=== PATIENT | female | born 1940 | race Caucasian/White ===

== ENCOUNTER → 2019-07-07 12:09 | Outpatient (CLI) | payer MEDICARE, BC ==
[2019-07-07 12:27] LABS: BASOPHILS 0.2 % (0-2); EOSINOPHILS 3.2 % (0-7); HEMATOCRIT 44.5 % (36.0-48.0); HEMOGLOBIN 14.4 g/dL (12-16); IMMATURE GRANULOCYTES 0.2 % (0-5); LYMPHOCYTES 34.7 % (15-50); MCH 29.8 pg (26.0-34.0); MCHC 32.4 g/dL (31.0-37.0); MCV 92.1 fL (80.0-100.0); MEAN PLATELET VOLUME 10.5 fL (7.4-10.4); MONOCYTES 7.3 % (2-11); NEUTROPHILS 54.4 % (40-80); PLATELET COUNT 246 10x3/uL (130-400); RBC 4.83 10x6/uL (4.00-5.40); RDW 13.5 % (11.5-14.5)
[2019-07-07 13:03] LABS: ALBUMIN 3.8 g/dL (3.4-5.0); ANION GAP 11.5 mmol/L (8-16); BILIRUBIN - TOTAL 0.52 mg/dL (0.2-1.3); CALCIUM 8.8 mg/dL (8.5-10.1); CARBON DIOXIDE 25.4 mmol/L (21.0-32.0); CREATININE - SERUM 1.5 mg/dL (0.6-1.3); POTASSIUM - SERUM 3.9 mmol/L (3.5-5.1)
== END | disposition home or self-care (01) ==
LOC: D.LABREF 12:09
PROVIDERS: ATTEND Internal Medicine Hematology & Oncology
DX: I82.409 Acute embolism and thrombosis of unspecified deep veins of unspecified lower extremity (principal); D51.3 Other dietary vitamin B12 deficiency anemia; D68.51 Activated protein C resistance

== ENCOUNTER → 2019-07-08 13:02 | Outpatient (CLI) | payer MEDICARE, BC | END | disposition home or self-care (01) | LOC: D.LABREF 13:02 | PROVIDERS: ATTEND Internal Medicine Hematology & Oncology | DX: I82.409 Acute embolism and thrombosis of unspecified deep veins of unspecified lower extremity (principal) ==

== ENCOUNTER 2020-09-03 15:39 | Inpatient (IN) | payer MEDICARE, BC ==
[~2020-09-03] VITALS: Ht 165.1 cm; Wt 87.1 kg
--- NOTE | 2020-09-03 16:23 | NUR ---
ARRIVES WITH FAMILY PER CAR, BROUGHT TO UNIT PER WC, ALERT AND O, HINGE BRACE IN PLACE TO R LEG, WILL TRANSCRIBE ORDERS
[2020-09-03 17:20] VITALS: BP 118/58
--- NOTE | 2020-09-03 19:33 | NUR ---
AWAKE AND ALERT. RESTING IN BED WITH RESPIRATIONS UNLABORED. RIGHT LEG HINGED BRACE IN PLACE. NO ACUTE DISTRESS NOTED. CALL LIGHT IN REACH.
[2020-09-03 20:00] VITALS: BP 125/60
--- NOTE | 2020-09-04 01:22 | NUR ---
RESTING WITH EYES CLOSED AND RESPIRATIONS UNLABORED. NO DISTRESS NOTED.
--- NOTE | 2020-09-04 05:25 | NUR ---
QUIET HOURS. NO ACUTE CHANGES IN CONDITION THIS SHIFT. RESTING IN BED WITH NO DISTRESS NOTED.
[2020-09-04 07:00] VITALS: BP 168/69
--- NOTE | 2020-09-04 08:00 | NUR ---
SHIFT ASSMT COMPLETED.CL IN REACH.
[2020-09-04 13:13] VITALS: Ht 165.1 cm; Wt 87.1 kg
[2020-09-04 19:00] VITALS: BP 118/67
--- NOTE | 2020-09-04 19:14 | NUR ---
AWAKE AND ALERT. RESTING IN BED WITH RESPIRATIONS UNLABORED. NO ACUTE DISTRESS NOTED. HINGED BRACE OFF WHILE IN BED.
--- NOTE | 2020-09-05 05:09 | NUR ---
QUIET HOURS. NO ACUTE CHANGES IN CONDITION THIS SHIFT. RESTING IN BED WITH NO DISTRESS NOTED.
[2020-09-05 07:00] VITALS: BP 115/39
--- NOTE | 2020-09-05 08:00 | NUR ---
SHIFT ASSMT COMPLETED.CL IN REACH.
--- NOTE | 2020-09-05 12:00 | NUR ---
SITTING UP IN CHAIR EATING LUNCH.
--- NOTE | 2020-09-05 19:28 | NUR ---
RESTING IN BED, NO DISTRESS NOTED, ALERT AND O, CONT TO MONITOR SAFETY
[2020-09-05 19:51] VITALS: BP 108/60
--- NOTE | 2020-09-06 01:21 | NUR ---
UP TO BATHROOM WITH WALKER, REFUSING TO WEAR BRACE TO KNEE, EXPLAINED NEED TO PT FOR STABILITY
[2020-09-06 07:00] VITALS: BP 129/48
[2020-09-06 07:07] LABS: EOSINOPHILS 4.1 % (0-7); HEMATOCRIT 38.5 % (36.0-48.0); HEMOGLOBIN 12.6 g/dL (12-16); LYMPHOCYTES 31.1 % (15-50); MCHC 32.6 g/dL (31.0-37.0); MCV 88.9 fL (80.0-100.0); MEAN PLATELET VOLUME 8.1 fL (7.4-10.4); MONOCYTES 8.7 % (2-11); NEUTROPHILS 55.1 % (40-80); PLATELET COUNT 228 10x3/uL (130-400); RBC 4.34 10x6/uL (4.00-5.40); RDW 14.1 % (11.5-14.5); WBC 5.2 10x3/uL (4.8-10.8)
[2020-09-06 07:32] LABS: ANION GAP 12.5 mmol/L (8-16); CALCIUM 9.6 mg/dL (8.5-10.1); CARBON DIOXIDE 22.8 mmol/L (21.0-32.0); CREATININE - SERUM 1.1 mg/dL (0.6-1.3); POTASSIUM - SERUM 4.3 mmol/L (3.5-5.1)
--- NOTE | 2020-09-06 18:47 | NUR ---
BEDSIDE REPORT COMPLETE. RECEIVED PT SITTING UP IN BED AWAKE. ALERT AND ORIENTED X4. DENIES ANY NEEDS OR PAIN. NO DISTRESS NOTED. CALL LIGHT AND WATER WITHIN REACH. PADMINI ALARM ON. CPOC
[2020-09-06 21:33] VITALS: BP 138/59
--- NOTE | 2020-09-07 00:38 | NUR ---
PT LYING IN BED EYES CLOSED RESTING. RR EVEN AND UNLABORED. CALL LIGHT WITHIN REACH. PADMINI ALARM ON
--- NOTE | 2020-09-07 06:08 | NUR ---
PT LYING IN BED ON LEFT SIDE EYES CLOSED RESTING. EASILY AROUSED WITH STIMULI. DENIES ANY NEEDS OR PAIN. NO ACUTE CHANGES IN CONDITION THIS SHIFT. CALL LIGHT AND WATER WITHIN REACH. PADMINI ALARM ON.
[2020-09-07 07:41] VITALS: BP 133/72
[2020-09-07 21:31] VITALS: BP 120/56
--- NOTE | 2020-09-08 02:18 | NUR ---
PT LYING IN BED ON LEFT SIDE EYES CLOSED RESTING. RR EVEN AND UNLABORED. PADMINI ALARM ON
--- NOTE | 2020-09-08 05:20 | NUR ---
PT LYING IN BED ON LEFT SIDE EYES CLOSED RESTING. NO DISTRESS NOTED. EASILY AROUSED WITH STIMULI. DENIES ANY NEEDS OR PAIN. CALL LIGHT WITHIN REACH. PADMINI ALARM ON
[2020-09-08 07:24] VITALS: BP 128/48
--- NOTE | 2020-09-08 08:00 | NUR ---
PATIENT SITTING UP IN BED EATTING BREAKFAST. CALL LIGHT WITHIN REACH. VOICES NO NEEDS AT THIS TIME. WILL CONTINUE WITH PLAN OF CARE
--- NOTE | 2020-09-08 10:44 | NUR ---
PATIENT IN REHAB ROOM. WORKING WITH PHYSICAL THERAPIST. DENIES ANY PAIN/DISC AT THIS TIME.
--- NOTE | 2020-09-08 11:41 | NUR ---
PATIENT ADMITTS TO [facility] FROM AN OUTSIDE FACILITY. AT THIS TIME DISCHARGE PLANS ARE FOR PATIENT TO RETURN TO HER HOME. WILL CONTINUE TO FOLLOW WITH PATIENT.
--- NOTE | 2020-09-08 15:53 | NUR ---
CARE TEAM MEETING: PATIENT IS DOING WELL IN THERAPY . HER TENATIVE DC DATE IS 09/10/20. WILL CONTINUE TO FOLLOW WITH PATIENT AND WILL ASSIST WITH DISCHARGE.
--- NOTE | 2020-09-08 17:21 | NUR ---
PATIENT SITTING UP ON THE SIDE OF THE BED TO EAT SUPPER. CALL LIGHT WITHIN REACH. VOICES NO NEED AT THIS TIME.
--- NOTE | 2020-09-08 18:47 | NUR ---
BEDSIDE REPORT COMPLETE. RECEIVED PT SITTING UP IN BED VISITING WITH FAMILY. ALERT AND ORIENTED X4. DENIES ANY NEEDS OR PAIN. NO DISTRESS NOTED. CALL LIGHT AND WATER WITHIN REACH. PADMINI ALARM ON. CPOC
[2020-09-08 20:17] VITALS: BP 143/57
--- NOTE | 2020-09-09 03:01 | NUR ---
PT LYING IN BED ON RIGHT SIDE EYES CLOSED RESTING. RR EVEN AND UNLABORED
[2020-09-09 08:07] VITALS: BP 104/53
--- NOTE | 2020-09-09 09:23 | NUR ---
SHE IS WORKING WITH THERAPY, SHE HAS A BRACE ON THE RIGHT LEG. SHE TOOK HER MEDICATIONS WITHOUT ANY PROBLEMS.
--- NOTE | 2020-09-09 18:55 | NUR ---
BEDSIDE REPORT COMPLETE. RECEIVED PT SITTING UP IN BED VISITING WITH FAMILY. ALERT AND ORIENTED X4. DENIES ANY NEEDS OR PAIN. NO DISTRESS NOTED. NO IV OR OXYGEN NOTED. CALL LIGHT AND WATER WITHIN REACH. PT IS ABLE TO AMBULATE IN ROOM INDEPENDENTLY PER PHYSICAL THERAPY. CPOC
--- NOTE | 2020-09-09 19:44 | RHP ---
PATIENT: BRIA CHAPA MEDICAL RECORD: [id number] ACCOUNT: [id number] [facility] AD[facility] DATE: 09/03/20 REHABILITATION HISTORY AND PHYSICAL EXAMINATION POST ADMISSION PHYSICIAN EXAMINATION POST ADMISSION PHYSICAL EXAMINATION AND HISTORY AND PHYSICAL ADMISSION DIAGNOSIS: Partial thickness tear of her semimembranosus tendon. HISTORY OF PRESENT ILLNESS: The patient is admitted to the rehab unit after an orthopedic diagnosis of a partial thickness tear of her semimembranosus tendon of her right knee. She has got a tear in her medial meniscus, joint effusion, and presence of a chronic DVT. The patient is an 79-year-old female, the patient got a history of CVA in the past. She presented to the ED with complaints of right knee pain. Her primary caregiver is her who also fell earlier that week. The patient was attempting to help him get up when her knee gave out. She had pain and inability to bear weight. She did try her spouse's walker without success. She was admitted for pain control, orthopedic evaluation, and possible post-acute placement. She is alert and oriented, very pleasant. She is slightly hard of hearing. Her pain is mainly to active motion and not palpation. The patient is on Eliquis and was held by ortho doctor, Dr. Mcgrath ordered MRI, which showed a partial thickness tear in her semimembranosus tendon. 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 She has got a horizontal tear of her medial meniscus. He decided really there was no surgical intervention appropriate at this time, put her on a knee immobilizer. She was independent at home prior to this fall and was a primary caregiver to her . Her family states that they cannot help. She is now requiring mid to mod assist with her functional transfers and ADLs. She will need intensive therapy to return back to her prior level of function or close as possible. She is also going to need additional pain control, lab monitoring. She will also be monitored for signs of DVT, immobility, and potential for a pulmonary embolus. Comorbidities include degenerative disk disease, debility, decreased mobility, decreased physical function, difficulty walking, DVT, falls, gastroesophageal reflux disease, hyperlipidemia, osteoarthritis, obesity problems with safety and pain. 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 PAST SURGICAL HISTORY: Includes hysterectomy, knee replacement, and parathyroidectomy. ALLERGIES: No known drug allergies at this time. CURRENT MEDICATIONS: Include Fornix daily. She is on vitamin D 2000 units daily, metoprolol 25 mg daily, folic acid 1 mg daily, B12 1000 mcg daily, Protonix 40 mg daily, Crestor 20 mg at bedtime, Ditropan 5 mg t.i.d., Nystop powder topically apply b.i.d., losartan 25 mg b.i.d., hydrocortisone cream to apply b.i.d., Colace 100 mg b.i.d., Keflex 250 mg at bedtime for 7 dosages. She is on Eliquis 5 mg b.i.d. She is on Pyridium 200 mg t.i.d. p.r.n., Tylenol p.r.n., and MiraLax 17 grams in 8 ounces of water habits. HABITS: No alcohol or tobacco use. HISTORY AND PHYSICAL [id number] BRIA CHAPA FAMILY HISTORY: Noncontributory. SOCIAL HISTORY: The patient hopes to return back to home and get back to her prior level of functioning. REVIEW OF SYSTEMS: GENERAL: She does complain of some weakness and fatigue. HEENT: Denies cold, cough, or congestion. CARDIOVASCULAR: Denies any chest pain. PHYSICAL EXAMINATION: VITAL SIGNS: Stable and afebrile. GENERAL: A well-developed elderly female in no acute distress, alert upon exam. HEENT: Normocephalic and atraumatic. Mucosa moist. NECK: Supple. No lymphadenopathy. LUNGS: Clear at this time. No wheezing or rales. HEART: Regular rate and rhythm. She does have a holosystolic murmur. ABDOMEN: Soft, benign, nondistended. Positive bowel sounds times 4. EXTREMITIES: No clubbing, cyanosis. She does have a small amount of swelling to her knee area, but no obvious pain to palpation. NEUROLOGIC: She is slow to mentation. She is hard of hearing, but otherwise she seems intact. ASSESSMENT: This is an 79-year-old female patient admitted to rehab with a working diagnosis of acute tear to her semimembranosus tendon to her knee along with meniscal tear also. The patient has potential to make improvement. We instituted the following multidisciplinary therapies including, but not limited to physical, occupational, respiratory, speech, nutritional services, prosthetics, and orthotics. Given her complex medical condition and risk for more complications, rehabilitation services cannot be provided at a low level of care such as care home facility. PLAN: 1. Admit to [facility] for inpatient therapy to include the following disciplines: A. Physical therapy to improve gait, all transfer skills and bed mobility to a modified independent level. B. Occupational therapy to improve activities of daily living. C. Case management to help with discharge planning and placement options. D. Nutrition to assist with nutritional needs. E. Rehabilitation nursing to assist in monitoring the patient's underlying medical conditions and to assist with any type of bowel or bladder management. 2. The patient's current medication and medical care will be continued. 3. She will be placed on standard fall precautions. 4. The patient's estimated length of stay is approximately 7-10 days. 5. We will discuss this patient during care team staff meeting this week and I will see again in the a.m. on Sunday. TRANSINT:[id number] Voice Confirmation ID: [id number] DOCUMENT ID: [id number] MESFIN notes whether there has been none or any medical/functional change since admission: - No change since preadmission screen. HISTORY AND PHYSICAL [id number] BRIA CHAPA attests patient continues to be appropriate for IRF: - Continues to be appropriate. AMIE ALAS MD at 1944 CC: [id number] DICTATION DATE: 09/04/20 1201 MEDICAL OFFICE TECHNOLOGIST: 09/04/20 1331 ADM IN [facility] [address] [place] [address]
[2020-09-09 19:57] VITALS: BP 128/61
--- NOTE | 2020-09-10 00:11 | NUR ---
PT LYING IN BED ON RIGHT SIDE EYES CLOSED RESTING. RR EVEN AND UNLABORED. CALL LIGHT WITHIN REACH
--- NOTE | 2020-09-10 01:50 | NUR ---
RESTING EYES CLOSED.
[2020-09-10] MEDS ORDERED: CEPHALEXIN250 M1 PO (03:12)
[2020-09-10] MEDS ORDERED: OMEPRAZOLE20 M1 PO (03:13)
[2020-09-10] MEDS ORDERED: CRESTOR20 MG PO (03:13)
[2020-09-10] MEDS ORDERED: FOLIC ACID1 MG PO (03:14)
[2020-09-10] MEDS ORDERED: TOPROL XL25 MG PO (03:14)
[2020-09-10] MEDS ORDERED: COZAAR25 MG PO (03:14)
[2020-09-10] MEDS ORDERED: VITAMIN B-121000 MCG PO (03:15)
[2020-09-10 07:06] LABS: ANION GAP 12.3 mmol/L (8-16); CALCIUM 8.8 mg/dL (8.5-10.1); CARBON DIOXIDE 23.8 mmol/L (21.0-32.0); CREATININE - SERUM 1.3 mg/dL (0.6-1.3); POTASSIUM - SERUM 4.1 mmol/L (3.5-5.1)
[2020-09-10 07:20] LABS: BASOPHILS 0.6 % (0-2); EOSINOPHILS 3.6 % (0-7); LYMPHOCYTES 30.9 % (15-50); MCH 29.7 pg (26.0-34.0); MCHC 33.2 g/dL (31.0-37.0); MCV 89.4 fL (80.0-100.0); MEAN PLATELET VOLUME 8.6 fL (7.4-10.4); MONOCYTES 9.2 % (2-11); NEUTROPHILS 55.7 % (40-80); PLATELET COUNT 222 10x3/uL (130-400); RBC 4.03 10x6/uL (4.00-5.40); RDW 14.4 % (11.5-14.5); WBC 5.4 10x3/uL (4.8-10.8)
[2020-09-10] MEDS ORDERED: HYDROCODON-ACE1 EAC7 PO (08:52)
[2020-09-10] MEDS ORDERED: ELIQUIS5 MG PO (08:52)
[2020-09-10] MEDS ORDERED: OXYBUTYNIN CHLOR5 MG PO (08:53)
[2020-09-10 08:57] VITALS: BP 112/52
--- NOTE | 2020-09-10 09:16 | NUR ---
SHE IS SETTING UP IN THE BED FOR BREAKFAST. SHE HAS THE BRACE FOR HER RIGHT KNEE WHEN OUT OF BED. THE CALL LIGHT IS WITHIN REACH AND THE BED ALARM IS ON.
--- NOTE | 2020-09-10 09:39 | NUR ---
PATIENT DISCHARGING HOME TODAY WITH FAMILY. PATIENT DECLINES HOME HEALTH AND ANY DME NEEDS AT THIS TIME. ENRIQUE SIGNED, IMM SERVED AND EXPLAINED, ONE GIVEN TO PATIENT AND ONE FILED IN CHART. DR. ROSITA KING 09/20/20 @ 1:30, DR. RENDON 09/22/20 @ 9:45, DR. SILVESTRE 10/04/20 @ 1:00, DR. ABDELRAHMAN MONTGOMERY 10/22/20 @ 1:30.DISCHARGE INSTRUCTIONS FAXED TO PCP AND REVIEWED WITH PATIENT.
--- NOTE | 2020-09-10 12:57 | NUR ---
ODERS HAVE BEEN FAXED TO [facility] PER DAUGHTER REQUEST.
--- NOTE | 2020-09-10 13:12 | NUR ---
PAPERWORK GONE OVER WITH THE PATIENT AND HER DAUGHTER. I GAVE HER A [employer] CARD. QUESTIONS ANSWERED. FOLLOW UP APPOINTMENTS MADE. A WRITTEN PRESCRIPTION FOR [facility] IS IN THE PAPERWORK. SHE HAS THE BRACE ON HER RIGHT LEG. TAKEN TO THE FRONT DOOR VIA WHEELCHAIR.
== END 2020-09-10 13:17 | disposition home or self-care (01) | DRG 949 ==
LOC: D.REHAB 15:39
PROVIDERS: ADMIT Emergency Medicine; ATTEND Emergency Medicine
DX: S83.241D Other tear of medial meniscus, current injury, right knee, subsequent encounter (principal); I82.512 Chronic embolism and thrombosis of left femoral vein; W19.XXXD Unspecified fall, subsequent encounter; S76.811D Strain of other specified muscles, fascia and tendons at thigh level, right thigh, subsequent encounter; R53.81 Other malaise; R26.2 Difficulty in walking, not elsewhere classified; K21.9 Gastro-esophageal reflux disease without esophagitis; E78.5 Hyperlipidemia, unspecified; M19.90 Unspecified osteoarthritis, unspecified site; E66.9 Obesity, unspecified; I10 Essential (primary) hypertension